=== PATIENT | male | born 1960 | race Hispanic/Latino ===

== ENCOUNTER 2018-01-04 10:58 | Emergency (ER) | payer OTHER ==
[~2018-01-04] VITALS: Ht 170.2 cm; Wt 118.1 kg
[2018-01-04] MEDS ORDERED: FLONASE16 G1 BOTH NARES (13:12)
[2018-01-04] MEDS ORDERED: PREDNISONE20 MG PO (13:12)
[2018-01-04] MEDS ORDERED: VENTOLIN HFA18 GM IH (13:12)
[2018-01-04 13:26] VITALS: BP 154/75
== END 2018-01-04 13:27 | disposition home or self-care (01) ==
LOC: EME 10:58
DX: B34.9 Viral infection, unspecified (principal); R05 Cough; F17.200 Nicotine dependence, unspecified, uncomplicated; I10 Essential (primary) hypertension
CPT/HCPCS: 71046; 87502; 94640; 94640 76; 99281; 99284; J2930